=== PATIENT | female | born 1975 | race Caucasian/White ===

== ENCOUNTER 2017-05-08 09:52 | Emergency (ER) | payer SELFPAY ==
[~2017-05-08] VITALS: Ht 162.6 cm; Wt 115.0 kg
[~2017-05-08 09:52] MED LIST: CETI10TA84 PO; HYDR-4383 PO; MOME50SP5; MONT1TAB3 PO; PANT40TA PO; PREG100C PO; TIZA4CAP PO
[2017-05-08 10:10] VITALS: TEMP 36.7; Ht 162.6 cm; Wt 115.0 kg
--- NOTE | 2017-05-08 10:48 | EMERGENCY ROOM VISIT NOTE ---
History Report prepared by Carmine: Anika Kilgore Under the Supervision of: Dr. Bari Burns M.D. First contact with patient: 10:27 Chief Complaint: KNEEPAIN Stated Complaint: LLE POST FX/ LEFT KNEE SWOLLEN PAINFUL History of Present Illness The patient is a 42 year old female who presents to the Emergency Room with complaints of an episode of a left knee injury occurring just prior to arrival. The patient states she was standing when her dog ran towards her at full speed and hit her lateral left knee inwards. She then fell to the ground onto her left side. The patient reports he dog is 100 pounds. She notes increased knee pain with movement. She reports having to use cruches to ambulate after the episode. The patient has a history of ACL repair surgery on her left knee. Source of History: patient Onset: just prior to arrival Position: knee (left) Quality: other (injury) Timing: other (episode) Modifying Factors (Worsening): movement Review of Systems See HPI for pertinent positives and negatives. A total of ten systems were reviewed and were otherwise negative. Past Medical & Surgical Medical Problems: (1) Appendectomy (2) Arthroscopy of knee joint (3) Fusion of posterior lumbar spine (4) Hysterectomy (5) Kidney stone (6) Laparoscopy Family History Patient reports no known family medical history. Social History Smoking Status: Current Every Day Smoker Alcohol Use: none Marital Status: Housing Status: lives with family Occupation Status: employed Current/Historical Medications Scheduled Cetirizine (Zyrtec), 10 MG PO HS Montelukast Sodium (Singulair), 10 MG PO HS Pantoprazole (Protonix), 40 MG PO BID Pregabalin (Lyrica), 100 MG PO AMHS Tizanidine (Zanaflex), 4 MG PO TID Scheduled PRN Hydrocodone/Acetaminophen ([place] 10/325 Tab), 0.5 TAB PO QID PRN for Pain Allergies Coded Allergies: Lavender Oil (Verified Allergy, Intermediate, HIVES, 05/08/17) Oxycodone (Unverified Allergy, Intermediate, PURITIS, 05/08/17) Ketorolac (Unverified Allergy, Mild, 05/08/17) Celecoxib (Verified Allergy, Unknown, HIVES, 05/08/17) Physical Exam Vital Signs Date Time Temp Pulse Resp B/P (MAP) Pulse Ox O2 Delivery O2 Flow Rate FiO2 05/08/17 12:43 60 20 107/71 95 Room Air 05/08/17 10:10 36.7 72 18 121/85 97 Room Air Physical Exam GENERAL: Awake, alert, well-appearing, in no distress HENT: Normocephalic, atraumatic. Oropharynx unremarkable. EYES: Normal conjunctiva. Sclera non-icteric. NECK: Supple. No nuchal rigidity. FROM. No JVD. RESPIRATORY: Clear to auscultation. CARDIAC: Regular rate, normal rhythm. Extremities warm and well perfused. Pulses equal. ABDOMEN: Soft, non-distended. No tenderness to palpation. No rebound or guarding. No masses. RECTAL: Deferred. MUSCULOSKELETAL: Chest examination reveals no tenderness. The back is symmetrical on inspection without obvious abnormality. There is no CVA tenderness to palpation. No joint edema. LOWER EXTREMITIES: Mild edema to left knee with mild tenderness to lateral aspect of proximal fibula. Full ROM with mild pain. Calves are equal size bilaterally and non-tender. No discoloration. NEURO: Normal sensorium. No sensory or motor deficits noted. SKIN: No rash or jaundice noted. Medical Decision & Procedures ER Provider Diagnostic Interpretation: Radiology results as stated below per my review and radiologist interpretation: L KNEE 3 VIEWS, L TIBIA/FIBULA 2 VIEWS ROUTINE FINDINGS: KNEE: Postoperative changes from prior ACL repair. Alignment appears satisfactory without acute fracture or dislocation identified. Minimal lateral tilt of the patella within the trochlear groove. Trace knee joint effusion. TIBIA/FIBULA: No acute fracture or dislocation identified within the proximal tibia or fibula. Small enthesophyte about the Achilles calcaneus. No opaque foreign body. Talar dome is smooth without osteochondral defect. Mild soft tissue swelling about the ankle with minimal cortical irregularity and lucency of the distal medial malleolus. IMPRESSION: 1. Mild soft tissue swelling about the ankle with subtle cortical lucency and irregularity of the distal most medial malleolus. Correlate with point tenderness to exclude acute nondisplaced fracture. 2. Small left knee joint effusion. 3. Evidence of prior ACL repair. The above report was generated using voice recognition software. It may contain grammatical, syntax or spelling errors. Electronically signed by: Woodrow Bradford M.D. L KNEE 3 VIEWS, L TIBIA/FIBULA 2 VIEWS ROUTINE FINDINGS: KNEE: Postoperative changes from prior ACL repair. Alignment appears satisfactory without acute fracture or dislocation identified. Minimal lateral tilt of the patella within the trochlear groove. Trace knee joint effusion. TIBIA/FIBULA: No acute fracture or dislocation identified within the proximal tibia or fibula. Small enthesophyte about the Achilles calcaneus. No opaque foreign body. Talar dome is smooth without osteochondral defect. Mild soft tissue swelling about the ankle with minimal cortical irregularity and lucency of the distal medial malleolus. IMPRESSION: 1. Mild soft tissue swelling about the ankle with subtle cortical lucency and irregularity of the distal most medial malleolus. Correlate with point tenderness to exclude acute nondisplaced fracture. 2. Small left knee joint effusion. 3. Evidence of prior ACL repair. The above report was generated using voice recognition software. It may contain grammatical, syntax or spelling errors. Electronically signed by: Woodrow Bradford M.D. ED Course 1032: The patient was evaluated in room A4B. A complete history and physical exam was performed. 1316: I reevaluated the patient. Discussed results and discharge instructions: She verbalized understanding and agreement. The patient is ready for discharge. Medical Decision I reviewed the patient's past medical history, medications, and the nursing notes as described above. Differential diagnoses: fracture, dislocation, ligamentous injury, soft tissue injury. The patient is a 42-year-old woman who presents emergency department with left knee pain after being tripped by her 100 pound dog per hpi. On arrival the patient is in no acute distress, afebrile stable vital signs. On exam the patient has mild swelling the left knee but has full range of motion and no gross deformities. X-ray of the knee negative for fracture. However plain film with question of lucency in the medial malleolus. Patient has no discrete tenderness there but the patient reports pain with range of motion of her ankle. She also reports ever since her prior ankle injury she has poor sensation in her ankle. Thus we agreed we will treat the patient with a walking boot and weightbearing as tolerated. She will follow-up with for her orthopedist for reevaluation. Findings and plan for follow-up reviewed with patient. Patient agreeable and d/c'd per discharge instructions. Medication Reconcilliation Current Medication List: was personally reviewed by me Blood Pressure Screening Patient's blood pressure: Normal blood pressure Impression Primary Impression: Sprain of knee Additional Impression: Sprain of ankle Scribe Attestation The scribe's documentation has been prepared under my direction and personally reviewed by me in its entirety. I confirm that the note above accurately reflects all work, treatment, procedures, and medical decision making performed by me. Departure Information Dispostion Home / Self-Care Referrals Harinder Paulino D.O. (PCP) Forms HOME CARE DOCUMENTATION FORM, IMPORTANT VISIT INFORMATION Patient Instructions ED RICE, ED Sprain Ankle, ED Sprain Knee, My [facility] Additional Instructions Please follow up with your orthopedist, Carrol, next week for re- evaluation. You likely have a knee and ankle sprain. Otherwise, your exam and xray did not show signs of an emergent condition at this time. Acetaminophen or ibuprofen for pain as needed. RICE therapy. Weight bearing as tolerated with crutches for support. Walking boot. Return to the emergency department for worsening symptoms as described in the accompanying instructions. Problem Qualifiers
--- NOTE | 2017-05-08 11:50 | DIAGNOSTIC IMAGING REPORT ---
L KNEE 3 VIEWS, L TIBIA/FIBULA 2 VIEWS ROUTINE HISTORY: 42 years-old Female pain fall acute left knee and left leg pain status post fall COMPARISON: None available TECHNIQUE: 3 views of the left knee and 3 views of the left tibia/fibula FINDINGS: KNEE: Postoperative changes from prior ACL repair. Alignment appears satisfactory without acute fracture or dislocation identified. Minimal lateral tilt of the patella within the trochlear groove. Trace knee joint effusion. TIBIA/FIBULA: No acute fracture or dislocation identified within the proximal tibia or fibula. Small enthesophyte about the Achilles calcaneus. No opaque foreign body. Talar dome is smooth without osteochondral defect. Mild soft tissue swelling about the ankle with minimal cortical irregularity and lucency of the distal medial malleolus. IMPRESSION: 1. Mild soft tissue swelling about the ankle with subtle cortical lucency and irregularity of the distal most medial malleolus. Correlate with point tenderness to exclude acute nondisplaced fracture. 2. Small left knee joint effusion. 3. Evidence of prior ACL repair. The above report was generated using voice recognition software. It may contain grammatical, syntax or spelling errors. Electronically signed by: Woodrow Bradford M.D. 05/08/2017 11:49 AM Dictated Date/Time: 05/08/2017 11:45 AM
[2017-05-08 12:43] VITALS: BP 107/71; PULSE 60; O2SAT 95
== END 2017-05-08 13:40 | disposition home or self-care (01) ==
LOC: C.EDB 09:54 → C.EDA 13:40
DX: S83.92XA Sprain of unspecified site of left knee, initial encounter (principal); S93.402A Sprain of unspecified ligament of left ankle, initial encounter; W54.1XXA Struck by dog, initial encounter; F17.200 Nicotine dependence, unspecified, uncomplicated; Z87.828 Personal history of other (healed) physical injury and trauma; Z91.048 Other nonmedicinal substance allergy status; Z88.6 Allergy status to analgesic agent

== ENCOUNTER → 2017-10-01 | Day surgery (SDC) | payer OTHER ==
[2017-09-23 15:56] VITALS: Ht 162.6 cm; Wt 111.8 kg
--- NOTE | 2017-09-29 17:38 | DIAGNOSTIC IMAGING REPORT ---
CHEST 2 VIEWS ROUTINE CLINICAL HISTORY: PRE OP TESTING COMPARISON STUDY: No previous studies for comparison. FINDINGS: The bones soft tissues and hemidiaphragms are normal. The cardiomediastinal silhouette is normal. The lungs are clear. The pulmonary vasculature is normal. IMPRESSION: Negative chest. The above report was generated using voice recognition software. It may contain grammatical, syntax or spelling errors. Electronically signed by: Macario Gray M.D. 09/29/2017 5:36 PM Dictated Date/Time: 09/29/2017 5:36 PM
--- NOTE | 2017-09-30 10:37 | History and Physical: Surg Cnt ---
History & Physical Date Sep 30, 2017. Chief Complaint sinus infections, headaches History of Present Illness The patient is a 42 year old female with complaints of chronic sinusitis, previous right side antrostomy, worsening headaches, also otitis media and blocked ears, unable to clear by valsalva Past Medical/Surgical History Medical Problems: (1) Appendectomy (2) Arthroscopy of knee joint (3) Fusion of posterior lumbar spine (4) Hysterectomy (5) Kidney stone (6) Laparoscopy Additional History Hepatic Disease: No Endocrine Disorder: Yes Kidney Disease: No Hypertension: No Heart Disease: No Bleeding Tendencies: No Infectious Diseases: No Allergies Coded Allergies: Lavender Oil (Verified Allergy, Intermediate, HIVES, 09/23/17) Oxycodone (Unverified Allergy, Intermediate, PURITIS, 09/23/17) Ketorolac (Unverified Allergy, Mild, ITCHING HIVES, 09/23/17) Celecoxib (Verified Allergy, Unknown, HIVES, 09/23/17) Home Medications Scheduled Cetirizine (Zyrtec), 10 MG PO HS Citalopram Hydrobromide (Celexa), 20 MG PO QAM Fluticasone Propionate (Nasal) (Flonase Allergy Relief), 2 SPRAYS INTNAS BID Montelukast Sodium (Singulair), 10 MG PO HS Pantoprazole (Protonix), 40 MG PO BID Pregabalin (Lyrica), 100 MG PO QAM Pregabalin (Lyrica), 150 MG PO HS Tizanidine (Zanaflex), 4 MG PO TID Scheduled PRN Hydrocodone/Acetaminophen ([place] 10/325 Tab), 0.5 TAB PO QID PRN for Pain Physical Examination Skin: warm/dry, no rash Eyes: normal inspection, EOMI, sclerae normal ENT: normal ENT inspection, pharynx normal, + pertinent finding (right side antrostomy, drainage, adhesions, septal deviation, ) Head: normocephalic, atraumatic Neck: supple, no adenopathy, trachea midline Respiratory/Chest: lungs clear, normal breath sounds, no respiratory distress Cardiovascular: regular rate, rhythm, no edema, no murmur Abdomen / GI: normal bowel sounds, non tender Back: normal inspection Extremities: normal inspection, normal range of motion Neurologic/Psych: no motor/sensory deficits, alert, normal reflexes, oriented x 3 Diagnosis chronic sinusitis, septal deviation, otitis media Plan of Treatment endoscopic sinus surgery, septoplasty, balloon eustachian tubes
[~2017-10-01] VITALS: Ht 162.6 cm; Wt 111.8 kg
[~2017-10-01] MED LIST changes: +ATROPINE SULFATE 0.1 MG/ML 5ML SYR IV PRN; +BACITRACIN OINT 15 GM TUBE ONE; +CEFAZOLIN 2000MG IV PUSH 15 ML IV SCH; +CITA20TA9 PO; +DEXAMETHASONE SOD INJ 4 MG/ML VIAL ONE; +EpHEDrine SULFATE INJ 50 MG/ML AMP IV PRN; +EpINEphrine INJ 1MG/ML AMP 1 MG/ML AMP ONE; +FENTANYL CITRATE INJ 50 MCG/1 ML 2 ML VIAL ONE; +FLUMAZENIL 0.1 MG/1 ML 10 ML VIAL IV PRN; +FLUT0.15 INTNAS; +GELATIN SPONGE 12-7MM ONE; +LABETALOL HCL IV 5 MG/ML 20ML IV PRN; +LACTATED RINGER'S 1000ML 1,000 ML IV SCH; +LIDO 2%/EPINEPHRINE 1:100000 20 ML VIAL ONE; +LIDOCAINE 4% MPF SOAK 5 ML = 1 DOSE ONE; +LIDOCAINE HCL 2% 2 ML VIAL (20MG/ML) ONE; +MIDAZOLAM HCL 1 MG/ML 2ML VIAL ONE; -MOME50SP5; +NALOXONE HCL 0.4 MG/1 ML VIAL/CARP IV PRN; +ONDANSETRON INJ 2 MG/ML 2 ML VIAL IV PRN; +ONDANSETRON INJ 2 MG/ML 2 ML VIAL ONE; +PREG1CAP70 PO; +PROMETHAZINE HCL INJ 12.5 MG in SODIUM CHLORIDE 0.9% 50ML 50 ML IV PRN; +PROPOFOL IV EMULSION 10 MG/ML 20 ML VIAL ONE; +SODIUM CHLORIDE 0.9% 1000ML 1,000 ML IV SCH; +SUCCINYLCHOLINE CHLORIDE 20 MG/ML 10 ML VIAL IV ONE
--- NOTE | 2017-10-01 08:09 | History & Physical Bridge Note ---
H&P Re-Evaluation Bridge Note: I have examined the patient, reviewed the History & Physical and in the interval since the performance of the History & Physical I have noted the following changes of clinical significance: No changes noted
--- NOTE | 2017-10-01 08:31 | Discharge Instructions-SurgCtr ---
Discharge Instructions Date of Service Oct 01, 2017. Visit Reason for Visit: Chronic Sinusitis, Septal Deviation, O.m. Discharge Discharge Diagnosis / Problem: same Discharge Goals Goal(s): Improve function, Improve disease control Activity Recommendations Activity Limitations: per Instructions/Follow-up section Anesthesia . Post Anesthesia Instructions: If you have had General Anesthesia or IV Sedation: * Do not drive today. * Resume driving when surgeon permits. * Do not make important decisions or sign legal documents today. * Call surgeon for: 1. Temperature elevations greater than 101 degrees F. 2. Uncontrollable pain. 3. Excessive bleeding. 4. Persistent nausea and vomiting. 5. Medication intolerance (nausea, vomiting or rash). * For nausea and vomiting use only clear liquids such as: tea, soda, bouillon until nausea subsides, then gradually increase diet as tolerated. * If you have any concerns or questions, call your surgeon's office. If physician is unavailable and it is an emergency, call 911 or go to the nearest emergency room. . Instructions / Follow-Up Instructions / Follow-Up ACTIVITY RECOMMENDATIONS: * Being up and around is good, but no strenuous activity, heavy lifting or physical exertion for one week. * Keep your head elevated 30 degrees when lying down or sleeping. * Do not blow your nose for 48 hours, sniff back instead. * Avoid hot showers. OVER THE COUNTER MEDICATIONS: * You may use Tylenol * Avoid aspirin or aspirin containing products, e.g. as they may increase bleeding. SPECIAL CARE INSTRUCTIONS: * Expect to have bloody drainage from your nose and/or down your throat for one to three days. Change drip pad as needed. * Begin irrigating your nose with saline solution today, at least six to ten times per day and sniff back to help remove old clots or crust. * You may experience nasal and facial congestion, pain and pressure, this is normal. * Please call with any significant and/or progressive pain, redness, swelling around the eyes, visual changes, fever of 101.5 degrees F, active bleeding or any problems or concerns. * If active bleeding occurs, spray the nose three times at one minute intervals with Afrin spray and call or cell phone: . If unable to reach the doctor, go to the nearest Emergency Department. Special Diet: * Avoid extremely hot fluids. FOLLOW UP VISIT: Follow-up Visit with Dr. Lao If not already scheduled, please call to schedule. Diet Recommendations Home Diet: resume previous diet Pending Studies Studies pending at discharge: no Medical Emergencies . Who to Call and When: Medical Emergencies: If at any time you feel your situation is an emergency, please call 911 immediately. . Non-Emergent Contact Non-Emergency issues call your: Primary Care Provider . . "Provider Documentation" section prepared by Rea Lao. . [place] Drug Monitoring Program Search Results: no issues identified
--- NOTE | 2017-10-01 10:12 | [facility] Post Operative Brief Note ---
Immediate Operative Summary Operative Date Oct 01, 2017. Pre-Operative Diagnosis Chronic Sinusitis, Septal Deviation, Otitis Media Post-Operative Diagnosis same Procedure(s) Performed R and L frontal, total ethmoid, and maxillary sinus antrostomies, septoplasty, balloon both eustachian tubes. Surgeon Dr. Javier Lao Sales Manager Prearranged Funerals Surgeon(s) 0 Estimated Blood Loss 50 Findings Consistent with Post-Op Diagnosis Specimens 0 Drains None Anesthesia Type General Complication(s) none Disposition Accompanied Pt To Recover: yes Disposition: Recovery Room / PACU Overlapping Procedure I was present for: the critical portions of procedure. I was immediately available: during the entire case
[2017-10-01] MEDS: FENTANYL CITRATE INJ 50 MCG/1 ML 2 ML VIAL IV PRN ×4 (10:36→11:01)
--- NOTE | 2017-10-01 11:18 | Anesthesia Progress Nt - [facility] ---
Anesthesia Post Op Note Date & Time Oct 01, 2017 at 11:18 Vital Signs Pain Intensity: 2 Vital Signs Past 12 Hours Date Time Temp Pulse Resp B/P (MAP) Pulse Ox O2 Delivery O2 Flow Rate FiO2 10/01/17 11:14 54 12 10/01/17 11:14 65 12 97 10/01/17 11:12 36.2 61 16 129/92 98 Room Air 10/01/17 11:11 129/92 10/01/17 11:09 57 17 10/01/17 11:09 57 17 140/78 96 10/01/17 11:07 50/33 10/01/17 11:04 58 12 10/01/17 11:04 60 12 97 10/01/17 11:02 /109 10/01/17 10:59 64 16 96 10/01/17 10:59 62 16 10/01/17 10:56 140/87 10/01/17 10:54 60 13 95 10/01/17 10:54 62 13 10/01/17 10:51 139/87 10/01/17 10:49 65 5 99 10/01/17 10:49 64 5 10/01/17 10:46 130/88 10/01/17 10:44 58 15 100 10/01/17 10:44 58 15 10/01/17 10:41 139/72 10/01/17 10:39 60 8 10/01/17 10:39 63 8 99 10/01/17 10:36 144/80 10/01/17 10:34 65 12 10/01/17 10:34 63 12 99 10/01/17 10:32 124/57 10/01/17 10:29 62 16 10/01/17 10:29 62 16 98 10/01/17 10:26 113/70 10/01/17 10:24 67 13 10/01/17 10:24 68 13 99 10/01/17 10:21 117/62 10/01/17 10:19 69 26 92 10/01/17 10:19 69 26 10/01/17 10:16 118/72 10/01/17 10:15 106/74 10/01/17 10:14 36.4 74 16 106/74 99 Humidified Oxygen 5 Mask 10/01/17 06:52 36.2 61 22 110/72 (85) 97 Room Air Notes Mental Status: alert / awake / arousable, participated in evaluation Pt Amnestic to Procedure: Yes Nausea / Vomiting: adequately controlled Pain: adequately controlled Airway Patency, RR, SpO2: stable & adequate BP & HR: stable & adequate Hydration State: stable & adequate Anesthetic Complications: no major complications apparent
[2017-10-01 11:26] VITALS: TEMP 36.2
[2017-10-01 11:54] VITALS: BP 128/81; PULSE 62; O2SAT 97
--- NOTE | 2017-10-01 14:57 | OPERATIVE REPORT ---
DATE OF OPERATION: 10/01/2017 PREOPERATIVE DIAGNOSES: Chronic sinusitis, septal deviation, and eustachian tube dysfunction. POSTOPERATIVE DIAGNOSIS: Same. PROCEDURES: Right and left frontal, right and left total ethmoid, and right and left maxillary sinus antrostomy. SURGEON: Taqueria Lao MD. ANESTHESIA: General endotracheal. COMPLICATIONS: None. ESTIMATED BLOOD LOSS: 50 mL. HISTORY OF PRESENT ILLNESS: A 42-year-old lady with recurrent chronic sinusitis has had endoscopic sinus surgery and septoplasty 10 years ago. Still has a bone spur to the left, opacified ethmoid sinuses and nasofrontal duct area on CT scan, confirmed with swollen tissue on endoscopy. DESCRIPTION OF PROCEDURE: The patient was brought to the operating room and placed in supine position. General endotracheal anesthesia was induced, prepped, and draped in the usual sterile manner. Nose decongested using cottonoids with a topical solution of 4 mL of 4% Xylocaine mixed with 1 mL of epinephrine. Injection of 2% Xylocaine in 1:100,000 strength epinephrine was also used. The left maxillary sinus, cannulated guidewire, dilated using the 6 mm balloon. The right maxillary sinus had a previous antrostomy. The right nasofrontal duct was cannulated with guidewire with Omnigy computer guidance. The balloon was inflated and then deflated and withdrawn leaving the guidewire in place as a marker for frontal sinusotomy. Frontal sinusotomy was performed using the shaver coupled with the Omnigy device removing the anterior wall and then the posterior wall of the agger nasi cell up to the nasofrontal duct preserving mucosa in the nasofrontal duct. At this point, total ethmoidectomy was performed. The bulla ethmoidalis was opened. The ground lamella was penetrated, and the posterior ethmoid air cells were opened. The posterior most ethmoid air cell was delineated along with the skull base and lamina papyracea. These structures were followed anteriorly exonerating all the posterior and then all the anterior ethmoid air cells up to the previously dilated nasofrontal duct. Maxillary sinus was opened removing polypoid tissue at the posterior border, at the anterior wall of the bullae ethmoidalis. The right nasofrontal duct was redilated, and a contour stent was placed. Propel stent was placed in the middle meatus. The left frontal sinusotomy, total ethmoidectomy, and maxillary sinus antrostomy performed in a similar manner. The eustachian tubes were visualized with the endoscope and then dilated using the 6 mm balloon to 12 atmospheric pressures for 2 minutes on each side. Endoscopic septoplasty was performed removing a large bony cartilaginous spur projecting to the left inferiorly. The incision was made over the spur using the 15 blade. Superior inferior tunnels were elevated, and then, bilateral posterior tunnels were elevated. The spur was fractured superiorly and then removed using the 15 blade [place] dissectorSteven forceps. The septum was packed with a single piece of Gelfoam on the left side. The patient tolerated procedure well and was taken to the recovery area in satisfactory condition. I attest to the content of the Intraoperative Record and any orders documented therein. Any exception s are noted below.
== END | disposition home or self-care (01) ==
LOC: X.SURG 06:40
PROVIDERS: ATTEND Otolaryngology
DX: J32.9 Chronic sinusitis, unspecified (principal); J34.2 Deviated nasal septum; K21.9 Gastro-esophageal reflux disease without esophagitis; Z90.49 Acquired absence of other specified parts of digestive tract; Z90.710 Acquired absence of both cervix and uterus; Z98.1 Arthrodesis status; Z88.5 Allergy status to narcotic agent
CPT/HCPCS: 31253; 31256; 61782; S1090